=== PATIENT | male | born 1980 | race Caucasian/White ===

== ENCOUNTER 2023-03-24 06:03 | Day surgery (SDC) | payer OTHER, SELFPAY ==
[2023-03-24 06:31] VITALS: BP 148/101; PULSE 72; RESP 18; TEMP 37.2; O2SAT 100
--- NOTE | 2023-03-24 07:02 | W.ANESPRE ---
General Info Date of Service Date Performed: 03/24/23 Height: 5 ft 7 in Weight: 102.8 kg Body Mass Index (BMI): 35.4 Surgical Procedure: Operation Date: 03/24/23 07:40 Proposed Procedure Side Surgeon p Wrist ECTR Right Magdy Venegas MD Meds Allergies and Home Medications Allergies Allergy/AdvReac Type Severity Reaction Status Date / Time No Known Allergies Allergy Verified 03/24/23 06:29 Home Medication Medication Instructions Recorded buprenorphine HCl 8 mg sublingual 16 mg sublingual DAILY 12/29/22 tablet diclofenac sodium 1 % topical gel 2 g topical QID 12/29/22 guanfacine 2 mg tablet 2 mg PO DAILY 12/29/22 hydroxyzine HCl 50 mg tablet 50 mg PO QHS 12/29/22 ibuprofen 200 mg tablet 200 mg PO Q6H PRN 12/29/22 triamcinolone acetonide 0.1 % 1 applic topical DAILY 12/29/22 topical cream omeprazole 20 mg capsule,delayed 20 mg PO DAILY 03/23/23 release hydrocodone 5 mg-acetaminophen 325 1 tab PO Q6H PRN severe pain #4 03/24/23 mg tablet tabs Current Visit Medications: Current Medications Generic Name Dose Route Start Last Admin Trade Name Freq PRN Reason Stop Dose Admin Ringer's Solution 1,000 mls @ 80 mls/hr 03/24/23 06:00 IV 04/22/23 23:59 INFUSION NORM Cefazolin Sodium/Dextrose 2 gm in 50 mls @ 100 mls/hr 03/24/23 06:00 Ancef Duplex IVPB 03/24/23 16:00 PREOP NORM IV Miscellaneous Supplies 1 each 03/24/23 06:00 Iv Access IV 04/22/23 23:59 DIRECTED NORM Sodium Chloride 0 ml 03/24/23 06:00 Normal Saline Flush 10 Ml Syr IV 04/22/23 23:59 PRN PRN Sodium Chloride 0 ml 03/24/23 06:00 Normal Saline 10 Ml Vial IJ 04/22/23 23:59 DIRECTED PRN Sterile Water 0 ml 03/24/23 06:00 Water,Injection,Sterile 10 Ml Vial IJ 04/22/23 23:59 DIRECTED PRN PFSH Active Problems Active Problems: Problem Status Onset Code Carpal tunnel syndrome on both sides G56.03 Medical History Medical History ADHD Hx of drug abuse Tobacco Smoking/Tobacco Use Status: Former Tobacco Use Alcohol Alcohol Intake: former Substance Use Substance use: Current Sobriety Substance use type: does not use Vital Signs and Lab Results Vital Signs Most Recent Vital Signs in EMR: Most Recent Vital Signs Temp Pulse Resp BP Pulse Ox 37.2 C 72 18 148/101 H 100 03/24/23 06:31 03/24/23 06:31 03/24/23 06:31 03/24/23 06:31 03/24/23 06:31 Lab Results Blood Type / Crossmatch: No Data to Display Complete Blood Count: No Data to Display Complete Metabolic Panel: No Data to Display Liver Function Panel: No Data to Display Coagulation Panel: No Data to Display Cardiac Panel: No Data to Display Arterial Blood Gas: No Data to Display Venous Blood Gas: No Data to Display Pancreas Panel: No Data to Display Thyroid Panel: No Data to Display Infectious Disease: No Data to Display Blood Cultures: No Data to Display Toxicology Panel: No Data to Display Anesthesia Assessment and Plan Anesthesia History Personal History: Unknown Anesthesia History Family History: Family History Unknown Exercise Tolerance Exercise Tolerance: Metabolic Equivalents>4 Pertinent Negatives Pertinent Negatives: No Symptoms of GERD, No Major Cardiovascular Symptoms or Complaints, No Major Pulmonary Symptoms or Complaints and No History of CVA/TIA Cardiac & Pulmonary Exam Cardiac Exam: Normal S1/S2 Heart Sounds Pulmonary Exam: Clear Bilateral Breath Sounds Implantable Cardiac Device Does patient have a Pacemaker or an ICD?: No Airway Exam Known Difficult Airway: No Mallampati Class: 1 Mouth Opening: Normal (> 3cm) Thyromental Distance: Greater than 3 cm Neck Range of Motion: Full ROM Neck Circumference: Normal Teeth Condition: Normal Dentition and Loose or Chipped (broken right back, not fragile or loose) ASA Classification ASA Score: ASA 2 Emergency Case?: No NPO Status NPO Status: NPO Clears >2 hours, Solids >8 hours Anesthesia Plan Resuscitation Status: Full Code Anesthesia Technique: General Anesthesia Airway Planned: Natural Airway Monitors Used: Standard Monitors
[2023-03-24 07:04] VITALS: BMI 35.4
--- NOTE | 2023-03-24 07:13 | W.PREOPHP ---
Assessment and Plan Assessment and plan (1) Carpal tunnel syndrome on both sides: Status: Acute Assessment and plan: Bryn is a 42-year-old male who has carpal tunnel syndrome on both sides. He is here today for the right carpal tunnel followed by left carpal tunnel in the near future. After a review of clinical history, exam findings, and nerve conduction testing, carpal tunnel syndrome is the most reasonable diagnosis. Due to the persistence of symptoms and their daily limitations with normal function, I offered a carpal tunnel release. I discussed the technical details of carpal tunnel release and that I perform an endoscopic release, but would make a larger, open, incision if necessary for visualization. I discussed the risks of the procedure to include, but not limited to, bleeding, infection, palmar pain, stiffness, damage to nerves, damage to vessels, damage to tendons, weakness, recurrence, and incomplete release. Given these risks, Bryn desires to proceed. We will perform the right side today followed by the left side in the near future. History of Present Illness History of Present Illness Chief Complaint: Bilateral carpal tunnel syndrome Narrative: Bryn is a 42-year-old [id number] male who has carpal tunnel syndrome about the both sides, worse on the right. Please see the previous office note from Gunner Yarbrough PA-C, regarding his current symptom profile. He has failed nonoperative options and continues to be limited by numbness and tingling about the right hand. His symptoms are in the thumb, index, and middle finger. He denies any recent illness. No chest pain or shortness of breath. Review of Systems All systems reviewed & are unremarkable except as noted in HPI and below PFSH All Active Problems Carpal tunnel syndrome on both sides (Acute) Medical History ADHD Hx of drug abuse Social History Smoking/Tobacco Use Status: Former Tobacco Use Smoking risk assessment performed?: Yes Alcohol Intake: former Drug use: Current Sobriety Substance use type: does not use Housing: other Meds Allergies and Home Medications Allergies Allergy/AdvReac Type Severity Reaction Status Date / Time No Known Allergies Allergy Verified 03/24/23 06:29 Home Medications Medication Instructions Recorded Confirmed Type buprenorphine HCl 8 mg sublingual 16 mg sublingual DAILY 12/29/22 03/24/23 History tablet diclofenac sodium 1 % topical gel 2 g topical QID 12/29/22 03/24/23 History guanfacine 2 mg tablet 2 mg PO DAILY 12/29/22 03/23/23 History hydroxyzine HCl 50 mg tablet 50 mg PO QHS 12/29/22 03/24/23 History ibuprofen 200 mg tablet 200 mg PO Q6H PRN 12/29/22 03/24/23 History triamcinolone acetonide 0.1 % 1 applic topical DAILY 12/29/22 03/24/23 History topical cream omeprazole 20 mg capsule,delayed 20 mg PO DAILY 03/23/23 03/24/23 History release Exam Const General: cooperative, healthy appearing, comfortable and no acute distress Resp Effort & Inspection: normal respiratory effort Auscultation: clear to auscultation bilaterally Cardio Rate: regular rate Rhythm: regular rhythm Extrem Other: Decreased sensation in the median nerve distribution. Positive Durkan's compression test. Palpable radial pulse. Results Last Vital Signs Temp 37.2 C 03/24/23 06:31 Pulse 72 03/24/23 06:31 Resp 18 03/24/23 06:31 BP 148/101 H 03/24/23 06:31 Pulse Ox 100 03/24/23 06:31
--- NOTE | 2023-03-24 07:24 | PDOC.DSDIS_ITS ---
Date of service: 03/24/23 Time of Service: 07:26 Discharge Plan Disposition Patient Disposition: [facility] Condition: Good Discharge Details Reason For Visit: Right carpal tunnel syndrome Attending Provider: Magdy Venegas Primary Care Provider: Unknown,Unknown Home Meds and New Rx's Prescriptions: New hydrocodone-acetaminophen 5-325 mg tablet 1 tab PO Q6H PRN (Reason: severe pain) Qty: 4 0RF Rx Instructions: Take one tablet up to every 6 hours as needed for severe postoperative pain Continued buprenorphine HCl 8 mg tablet, sublingual 16 mg sublingual DAILY guanfacine 2 mg tablet 2 mg PO DAILY hydroxyzine HCl 50 mg tablet 50 mg PO QHS diclofenac sodium 1 % gel 2 g topical QID Rx Instructions: apply to single elbow, wrist or hand; for hand includes palm/fingers/back of hand ibuprofen 200 mg tablet 200 mg PO Q6H PRN triamcinolone acetonide 0.1 % cream 1 applic topical DAILY omeprazole 20 mg capsule,delayed release(DR/EC) 20 mg PO DAILY Discharge Instructions Stand Alone Forms: Theo Godinez Tunnel Release Referrals: Magdy Venegas MD [ [facility] STAFF PHYSICIAN] - Activity:: Elevate Remove Dressings/Wound Care:: 48 hours Shower/Bathe:: 48 hours Diet:: As Tolerated Discharge Orders Discharge Orders: Discharge Order (Routine); Ordered 03/24/23 Ordered By: Yesi Valdez DS: Diagnosis Discharge Diagnosis (1) Carpal tunnel syndrome on both sides: Status: Acute
[2023-03-24] MEDS: Lactated Ringers 1,000 ML 80 ML IV (07:32)
[2023-03-24] MEDS: ceFAZolin 2 GM/50 ML BAG IVPB (07:37)
[2023-03-24] MEDS: Lidocaine 1% Multi-Dose W/EPI 1/100,000 50 ML VIAL (07:43)
[2023-03-24 07:57] VITALS: BP 122/97; PULSE 91; RESP 20; TEMP 36.6; O2SAT 97
[2023-03-24 08:30] VITALS: BP 142/126; PULSE 80; RESP 16; TEMP 36.5; O2SAT 94
--- NOTE | 2023-03-24 08:39 | W.ANESPOSTOP ---
Postoperative Evaluation Date, Time and Location Date Performed: 03/24/23 Time Performed: 08:40 Patient Location: Day Surgery Unit Vital Signs Most Recent Imported Vital Signs: Most Recent Vital Signs Temp Pulse Resp BP Pulse Ox 36.6 C 91 H 20 122/97 H 97 03/24/23 07:57 03/24/23 07:57 03/24/23 07:57 03/24/23 07:57 03/24/23 07:57 Pain Score Most Recent Pain Score: Most Recent Pain Score Pain Level 0 03/24/23 07:57 Assessment Mental Status: Awake (Alert & Oriented to Patient Baseline) Airway and Respiratory Function: Patent airway with normal (patient baseline) respiratory exam Cardiovascular Function: Hemodynamically Stable Hydration Status: Adequately Hydrated Nausea & Vomiting: No Nausea or Vomiting Pain: Pt. Denies Any Pain Peripheral Nerve Block: Patient did not receive a nerve block
--- NOTE | 2023-03-24 10:45 | W.PM.OP ---
Date of service: 03/24/23 Time of Service: 07:35 Operative Note Operative Note DATE OF PROCEDURE: 03/24/23 PRE-OP DIAGNOSIS: Right Carpal Tunnel Syndrome POST-OP DIAGNOSIS: same PROCEDURE: Right Endoscopic Carpal Tunnel Release SURGEON: Magdy Venegas ANESTHESIA TYPE: General:No Airway Refer to Anesthesia Record ESTIMATED BLOOD LOSS: 0 PATHOLOGY: none sent TOURNIQUET TIME: 6 COMPLICATIONS: None Patient was transported to: same day Patient's condition: stable Indications: I have seen Bryn in clinic for symptoms of carpal tunnel syndrome. The numbness, tingling, and pain limited function. Clinical exam findings with nerve conduction tests confirmed the diagnosis of carpal tunnel syndrome. Nonoperative measures such as bracing, time, activity modifications had been tried but disability and pain persisted. I discussed carpal tunnel release with the patient. I reviewed the risks of the procedure to include, but not limited to, bleeding, infection, pain, stiffness, incomplete release, damage to nerves or vessels, persistent numbness, recurrence. Despite these risks, the patient elected to proceed. Findings: There was tightened carpal tunnel. This was dilated and released successfully with the endoscopic with increased space within the tunnel. The antebrachial fascia was released proximally freeing the median nerve at the wrist. Procedure Description: Bryn was greeted in the preoperative holding area where the correct side was identified and marked. The consent was reviewed with the patient and signed. The history and physical was updated. All questions were answered. He was taken back to the operating room. The patient was placed into the supine position on the operating room table with the right arm on an arm board. A nonsterile tourniquet was placed high onto the arm. All bony prominences were well padded. Prophylactic antibiotics in the form of Cefazolin were administered. The right arm was then prepped with Chloraprep and draped in a standard fashion with stockinette and extremity drape. A timeout to confirm correct identity, side and site, procedure, allergies, anesthesia, and medical concerns was performed. The surgical site was marked in the volar wrist creases in line with the radial border of the fourth ray. This area was anesthetized with approximately 6cc of 1% Lidocaine. The limb was then exsanguinated with an Esmarch. The skin was incised with a 15 blade, approximately 1cm. The skin only was cut and the deeper tissue was dissected bluntly with a tenotomy scissor, avoiding passing nerve and venous structures. The fascia was penetrated and opened bluntly. A two-prong skin hook was placed under this proximal fascial edge. A series of hamate finders were used to identify and dilate the carpal tunnel. Synovial elevator was used to free synovial attachments to the underside of the transverse carpal ligament. My thumb was kept in the palm to lena the distal extent of the carpal tunnel and correctly position the hand. The [employer] endoscope was inserted without difficulty and without resistance. Excellent visualization showed horizontally running fibers of the transverse carpal ligament (TCL). The distal extent of the TCL was visualized and the end of the scope palpated with the thumb. The blade was elevated and withdrawn from distal to proximal. The TCL was split into two flaps. The endoscope was reinserted to confirm complete release and any remnant ligament was incised. The scope was withdrawn and the proximal aspect of the carpal tunnel was grossly inspected and appeared release with the median nerve visible. The antebrachial fascia at the level of the wrist was then freed from the overlying skin and then the underlying median nerve with blunt dissection. This was transected longitudinally for about 3cm proximal to the wrist incision. The wound was then irrigated with easy flow of irrigant distally and proximally. The incision was closed with a single 4-0 Nylon suture. The wound was dressed with Xeroform, Gauze, Kerlix and Rogelio. The tourniquet was deflated with the initial dressing and held with some pressure. Blood flow returned easily to all digits with capillary refill less than 2 seconds. The patient tolerated the procedure well and was returned to the Same Day Surgery area in a stable condition suffering no known complication.
== END 2023-03-24 08:55 ==
PROVIDERS: Visit Provider Student in an Organized Health Care Education/Training Program
PROC: 01N54ZZ Release Median Nerve, Percutaneous Endoscopic Approach (ICD-10-PCS; CPT 29848; principal; 2023-03-24 07:30)
DX: G56.01 Carpal tunnel syndrome, right upper limb (principal)
CPT/HCPCS: 29848; J0690; J1885; J2001; J2004; J2250; J2401; J2704

== ENCOUNTER 2023-10-21 08:07 | Day surgery (SDC) | payer OTHER, SELFPAY ==
--- NOTE | 2023-10-21 06:12 | W.ANESPRE ---
General Info Date of Service Date Performed: 10/21/23 Height: 5 ft 8 in Weight: 91.3 kg Body Mass Index (BMI): 30.6 Surgical Procedure: Operation Date: 10/21/23 07:40 Proposed Procedure Side Surgeon p Wrist ECTR Left Magdy Venegas MD Meds Allergies and Home Medications Allergies Allergy/AdvReac Type Severity Reaction Status Date / Time No Known Allergies Allergy Verified 10/21/23 08:16 Home Medication ?Medication ?Instructions ?Recorded buprenorphine HCl 8 mg sublingual 16 mg sublingual DAILY 12/29/22 tablet ibuprofen 200 mg tablet 200 mg PO Q6H PRN 12/29/22 clobetasol 0.05 % topical cream 1 applic topical DAILY 10/19/23 hydrocodone 5 mg-acetaminophen 325 1 tab PO Q6H PRN pain #4 tabs 10/21/23 mg tablet Current Visit Medications: Current Medications Generic Name Dose Route Start Last Admin Trade Name Freq PRN Reason Stop Dose Admin Ringer's Solution 1,000 mls @ 80 mls/hr 10/21/23 06:00 IV 10/21/23 23:59 INFUSION NORM Cefazolin Sodium/Dextrose 2 gm in 50 mls @ 100 mls/hr 10/21/23 06:00 Ancef Duplex IVPB 10/21/23 23:59 PREOP NORM IV Miscellaneous Supplies 1 each 10/21/23 06:00 Iv Access IV 10/21/23 23:59 DIRECTED NORM Sodium Chloride 0 ml 10/21/23 06:00 Normal Saline Flush 10 Ml Syr IV 10/21/23 23:59 PRN PRN Sodium Chloride 0 ml 10/21/23 06:00 Normal Saline 10 Ml Vial IJ 10/21/23 23:59 DIRECTED PRN Sterile Water 0 ml 10/21/23 06:00 Water,Injection,Sterile 10 Ml Vial IJ 10/21/23 23:59 DIRECTED PRN PFSH Active Problems Active Problems: Problem Status Onset Code Carpal tunnel syndrome on both sides Acute G56.03 Medical History Medical History Hearing loss Anesthesia complication Requires Ultrasound for PIV starts. ADHD Hx of drug abuse Tobacco Smoking/Tobacco Use Status: Former Tobacco Use Alcohol Alcohol Intake: former Substance Use Substance use: Current Sobriety Substance use type: does not use Vital Signs and Lab Results Vital Signs Most Recent Vital Signs in EMR: Temp Pulse Resp BP Pulse Ox 36.3 C L 69 18 142/95 H 95 10/21/23 08:19 10/21/23 08:19 10/21/23 08:19 10/21/23 08:19 10/21/23 08:19 Lab Results Blood Type / Crossmatch: No Data to Display Complete Blood Count: No Data to Display Complete Metabolic Panel: No Data to Display Liver Function Panel: No Data to Display Coagulation Panel: No Data to Display Cardiac Panel: No Data to Display Arterial Blood Gas: No Data to Display Venous Blood Gas: No Data to Display Pancreas Panel: No Data to Display Thyroid Panel: No Data to Display Infectious Disease: No Data to Display Blood Cultures: No Data to Display Toxicology Panel: No Data to Display Anesthesia Assessment and Plan Anesthesia History Personal History: No History of Anesthesia Complications Family History: Family History Unknown Exercise Tolerance Exercise Tolerance: Metabolic Equivalents>4 Cardiac & Pulmonary Exam Cardiac Exam: Normal S1/S2 Heart Sounds Pulmonary Exam: Clear Bilateral Breath Sounds Implantable Cardiac Device Does patient have a Pacemaker or an ICD?: No Airway Exam Known Difficult Airway: No Mallampati Class: 1 Mouth Opening: Normal (> 3cm) Thyromental Distance: Greater than 3 cm Neck Range of Motion: Full ROM Neck Circumference: Normal Teeth Condition: Normal Dentition and Loose or Chipped (broken right back, not fragile or loose) ASA Classification ASA Score: ASA 2 Emergency Case?: No NPO Status NPO Status: NPO Clears >2 hours, Solids >8 hours Anesthesia Plan Resuscitation Status: Full Code Anesthesia Technique: General Anesthesia Airway Planned: Natural Airway Monitors Used: Standard Monitors Preoperative Comments:: 43 yo male for ECTR. Sig PMHx: ADHD, former smoker, opiate use hx (buprenorphine) Previous Anes: - ECTR, dex, midaz, prop, natural airway, no issues.
--- NOTE | 2023-10-21 07:38 | W.PM.DSUDISC ---
Date of service: 10/21/23 Time of Service: 07:38 Discharge Plan Disposition Patient Disposition: Home Condition: Good Discharge Details Reason For Visit: L ECTR Attending Provider: Magdy Venegas Home Meds and New Rx's Prescriptions: New hydrocodone-acetaminophen 5-325 mg tablet 1 tab PO Q6H PRN (Reason: pain) Qty: 4 0RF Continued buprenorphine HCl 8 mg tablet, sublingual 16 mg sublingual DAILY ibuprofen 200 mg tablet 200 mg PO Q6H PRN clobetasol 0.05 % cream 1 applic topical DAILY Discharge Instructions Stand Alone Forms: Theo Godinez Tunnel Release Activity:: Activity as Tolerated Remove Dressings/Wound Care:: 48 hours Shower/Bathe:: 48 hours Diet:: As Tolerated Discharge Orders Discharge Orders: Discharge Order (Routine); Ordered 10/21/23 Ordered By: Gunner Yarbrough DS: Diagnosis Discharge Diagnosis (1) Carpal tunnel syndrome on both sides: Status: Acute
[2023-10-21 08:19] VITALS: BP 142/95; PULSE 69; RESP 18; TEMP 36.3; O2SAT 95
[2023-10-21] MEDS: Lactated Ringers 1,000 ML 80 ML IV (08:42)
--- NOTE | 2023-10-21 08:44 | W.ANESVAS ---
Midline Placement Date Performed: 10/21/23 Procedure Time: 08:38 Requesting Provider: Magdy Venegas Procedure Location: Day Surgery Unit Sedation Given (Indicate Dose Given): No Sedation given Patient Mental Status: Awake Sterility: Hand Hygiene, Surgical Cap and Chlorhexidine Laterality: Right Insertion Site: Basilic Midline Device: PowerGlide Pro 20G Catheter Length: 10 cm Midline Procedure Procedure: 1% Lidocaine to skin and subcutaneous tissue with 25g needle and Catheter placed without resistance Dressing: Tegaderm Applied Blood Return: Present Flushes: Easily Ultrasound: Sterile probe cover and gel used Ultrasound Image Saved?: No Number of Attempts (See previous attempts in note section): 1 Procedure Tolerated: No Complications Procedure Outcome: Successful Performed By: Eusebio Bermudez
[2023-10-21 08:45] VITALS: BMI 30.6
--- NOTE | 2023-10-21 09:08 | W.PREOPHP ---
Assessment and Plan Assessment and plan (1) Carpal tunnel syndrome on both sides: Status: Acute Assessment and plan: Bryn is a 43-year-old male who has bilateral carpal tunnel syndrome, status post right endoscopic carpal tunnel release about 7 months ago. He is doing very well from the right side and wants to proceed with the left side today. He continues have some numbness and tingling in the median nerve distribution which is failed other nonoperative options. Once again, I reviewed the risk of the procedure to include bleeding, infection, pain, stiffness, continued numbness, inflammation, soreness, palmar pain, need for repeat procedures. Despite these risk, he elects to proceed. He has no other changes to his health history. He tolerated the procedure on the right side quite well. History of Present Illness Narrative: Tommie is a 43-year-old male who has bilateral carpal tunnel syndrome. He has undergone a right carpal tunnel lease with excellent results. He is today for the left side. He continues have numbness and tingling about the median nerve distribution. He is interested in proceeding with the left side today. He has no other health changes or medical results since the previous visit. Review of Systems All systems reviewed & are unremarkable except as noted in HPI and below PFSH All Active Problems Carpal tunnel syndrome on both sides (Acute) s/p right ECTR DOS: 03/24/23 s/p left ECTR: 10/21/2023 Medical History Hearing loss Anesthesia complication Requires Ultrasound for PIV starts. ADHD Hx of drug abuse Social History Smoking/Tobacco Use Status: Former Tobacco Use Smoking risk assessment performed?: Yes Alcohol Intake: former Drug use: Current Sobriety Substance use type: does not use Housing: other Meds Allergies and Home Medications Allergies Allergy/AdvReac Type Severity Reaction Status Date / Time No Known Allergies Allergy Verified 10/21/23 08:16 Home Medications ?Medication ?Instructions ?Recorded ?Confirmed ?Type buprenorphine HCl 8 mg sublingual 16 mg sublingual DAILY 12/29/22 10/21/23 History tablet ibuprofen 200 mg tablet 200 mg PO Q6H PRN 12/29/22 10/19/23 History clobetasol 0.05 % topical cream 1 applic topical DAILY 10/19/23 10/19/23 History hydrocodone 5 mg-acetaminophen 325 1 tab PO Q6H PRN pain #4 tabs 10/21/23 Rx mg tablet Exam Const General: cooperative, healthy appearing, comfortable and no acute distress Resp Effort & Inspection: normal respiratory effort Auscultation: clear to auscultation bilaterally Cardio Rate: regular rate Rhythm: regular rhythm Results Last Vital Signs Temp 36.3 C L 10/21/23 08:19 Pulse 69 10/21/23 08:19 Resp 18 10/21/23 08:19 BP 142/95 H 10/21/23 08:19 Pulse Ox 95 10/21/23 08:19
[2023-10-21] MEDS: ceFAZolin 2 GM/50 ML BAG IVPB (10:53)
[2023-10-21] MEDS: Lidocaine 1% Multi-Dose W/EPI 1/100,000 50 ML VIAL (11:02)
[2023-10-21 11:12] VITALS: BP 140/106; PULSE 70; RESP 18; TEMP 36.2; O2SAT 95
--- NOTE | 2023-10-21 11:35 | W.ANESPOSTOP ---
Postoperative Evaluation Date, Time and Location Date Performed: 10/21/23 Time Performed: 11:18 Patient Location: Day Surgery Unit Vital Signs Most Recent Imported Vital Signs: Most Recent Vital Signs Temp Pulse Resp BP Pulse Ox 36.2 C L 70 18 140/106 H 95 10/21/23 11:12 10/21/23 11:12 10/21/23 11:12 10/21/23 11:12 10/21/23 11:12 Pain Score Most Recent Pain Score: Most Recent Pain Score Pain Level 0 10/21/23 11:12 Assessment Mental Status: Awake (Alert & Oriented to Patient Baseline) Airway and Respiratory Function: Patent airway with normal (patient baseline) respiratory exam Cardiovascular Function: Hemodynamically Stable Hydration Status: Adequately Hydrated Nausea & Vomiting: No Nausea or Vomiting Pain: Pt. Denies Any Pain Peripheral Nerve Block: Patient did not receive a nerve block
[2023-10-21 11:44] VITALS: BP 128/90; PULSE 60; RESP 18; TEMP 36.3; O2SAT 94
--- NOTE | 2023-10-23 07:58 | W.PM.OP ---
Date of service: 10/21/23 Time of Service: 10:00 Operative Note Operative Note DATE OF PROCEDURE: 10/21/23 PRE-OP DIAGNOSIS: Left Carpal Tunnel Syndrome POST-OP DIAGNOSIS: same PROCEDURE: Left Endoscopic Carpal Tunnel Release SURGEON: Magdy Venegas ANESTHESIA TYPE: General:No Airway Refer to Anesthesia Record ESTIMATED BLOOD LOSS: 0 PATHOLOGY: none sent TOURNIQUET TIME: 5 COMPLICATIONS: None Patient was transported to: same day Patient's condition: stable Indications: I have seen Bryn in clinic for symptoms of carpal tunnel syndrome. The numbness, tingling, and pain limited function. Clinical exam findings confirmed the diagnosis of carpal tunnel syndrome. Nonoperative measures such as bracing, time, activity modifications had been tried but disability and pain persisted. He had a successful release of the right carpal tunnel in March. I discussed carpal tunnel release with the patient. I reviewed the risks of the procedure to include, but not limited to, bleeding, infection, pain, stiffness, incomplete release, damage to nerves or vessels, persistent numbness, recurrence. Despite these risks, the patient elected to proceed. Findings: There was tightened carpal tunnel. This was dilated and released successfully with the endoscopic with increased space within the tunnel. The antebrachial fascia was released proximally freeing the median nerve at the wrist. Procedure Description: Bryn was greeted in the preoperative holding area where the correct side was identified and marked. The consent was reviewed with the patient and signed. The history and physical was updated. All questions were answered. He was taken back to the operating room. The patient was placed into the supine position on the operating room table with the left arm on an arm board. A nonsterile tourniquet was placed high onto the arm. All bony prominences were well padded. Prophylactic antibiotics in the form of Cefazolin were administered. The left arm was then prepped with Chloraprep and draped in a standard fashion with stockinette and extremity drape. A timeout to confirm correct identity, side and site, procedure, allergies, anesthesia, and medical concerns was performed. The surgical site was marked in the volar wrist creases in line with the radial border of the fourth ray. This area was anesthetized with approximately 6cc of 1% Lidocaine. The limb was then exsanguinated with an Esmarch. The skin was incised with a 15 blade, approximately 1cm. The skin only was cut and the deeper tissue was dissected bluntly with a tenotomy scissor, avoiding passing nerve and venous structures. The fascia was penetrated and opened bluntly. A two-prong skin hook was placed under this proximal fascial edge. A series of hamate finders were used to identify and dilate the carpal tunnel. Synovial elevator was used to free synovial attachments to the underside of the transverse carpal ligament. My thumb was kept in the palm to lena the distal extent of the carpal tunnel and correctly position the hand. The Microaire endoscope was inserted without difficulty and without resistance. Excellent visualization showed horizontally running fibers of the transverse carpal ligament (TCL). The distal extent of the TCL was visualized and the end of the scope palpated with the thumb. The blade was elevated and withdrawn from distal to proximal. The TCL was split into two flaps. The endoscope was reinserted to confirm complete release and any remnant ligament was incised. The scope was withdrawn and the proximal aspect of the carpal tunnel was grossly inspected and appeared release with the median nerve visible. The antebrachial fascia at the level of the wrist was then freed from the overlying skin and then the underlying median nerve with blunt dissection. This was transected longitudinally for about 3cm proximal to the wrist incision. The wound was then irrigated with easy flow of irrigant distally and proximally. The incision was closed with a single 4-0 Nylon suture. The wound was dressed with Xeroform, Gauze, Kerlix and Rogelio. The tourniquet was deflated with the initial dressing and held with some pressure. Blood flow returned easily to all digits with capillary refill less than 2 seconds. The patient tolerated the procedure well and was returned to the Same Day Surgery area in a stable condition suffering no known complication.
== END 2023-10-21 12:01 | disposition home or self-care (01) ==
LOC: SUR 08:08
PROVIDERS: Visit Provider Student in an Organized Health Care Education/Training Program
PROC: 01N54ZZ Release Median Nerve, Percutaneous Endoscopic Approach (ICD-10-PCS; CPT 29848; principal; 2023-10-21 07:30)
DX: G56.02 Carpal tunnel syndrome, left upper limb (principal)
CPT/HCPCS: 29848; J0690; J2004; J2250; J2704